=== PATIENT | female | born 1995 | race American Indian/Alaskan Native ===

== ENCOUNTER 2018-06-19 16:28 | Inpatient (IN) | payer MEDICAID ==
[2018-06-19] MEDS ORDERED: BRETHINE SUB-Q PRN (19:16)
[2018-06-19] MEDS ORDERED: CERVIDIL VG ONE (19:16)
[2018-06-19] MEDS ORDERED: SUBLIMAZE IV PRN (19:16)
[2018-06-19] MEDS ORDERED: XYLOCAINE 2% INFILTRATI ONE (19:16)
[2018-06-19] MEDS ORDERED: AMPICILLIN/NS 2 GM/100 ML 2 GM/100 ML BAG IV ONE (19:16)
--- NOTE | 2018-06-19 19:37 | History and Physical Report ---
History of Present Illness Date of examination: 06/19/18 Date of admission: 06/19/2018 Chief complaint: at 40 4/7 weeks gestation; grade 3 placenta; FHR deceleration History of present illness: 22 year old was sent over from office for BPP and NST due to FHR deceleration in office. Patient reports active movement. BPP 10/22. Normal CESAR. Category 1 heart rate tracing. Grade 3 placenta. LMP 09/08/2017. EDC 06/15/2018. EGA 40 weeks, 4 days gestation. Patient received care at [facility]. she transferred to [facility] from [place], [place] at 37 weeks gestation. records are available. significant for the following: GBS positive, severe anemia and pica (treated with iron). labs are as follows: O+, antibody screen negative, pap smear normal, rubella immune, RPR nonreactive, Hepatitis B surface antigen negative, HIV negative, varicella immune, hemoglobin electrophoresis AA, chlamydia negative, gonorrhea negative, GBS positive. Past History Past Medical History: no pertinent history Past Surgical History: no surgical history [facility] History: denies: abnormal PAP smear, chlamydia, gonorrhea, hepatitis B, herp es, HIV, syphilis Family/Genetic History: none Social history: full code. denies: smoking, alcohol abuse, prescription drug abuse, IV drug use - Obstetrical History Expected Date of Delivery: 06/15/18 Actual Gestation: 40 Week(s) 4 Day(s) : 1 Para: 0 Hx # Term Pregnancies: 0 Number of Pregnancies: 0 Spontaneous Abortions: 0 Induced : 0 Number of Living Children: 0 Medications and Allergies Allergies Allergy/AdvReac Type Severity Reaction Status Date / Time No Known Allergies Allergy Unverified 06/19/18 16:34 Active Meds: Active Medications Ephedrine Sulfate (Ephedrine Sulfate) 10 mg IV Q2M PRN PRN Reason: Hypotension Fentanyl (Sublimaze) 100 mcg IV Q2H PRN PRN Reason: Labor Pain Ampicillin Sodium (Polycillin/Ns 2 Gm/100 Ml) 2 gm in 100 mls @ 100 mls/hr IV ONCE ONE; Protocol Stop: 06/19/18 20:15 Lactated Ringer's (Lactated Ringers) 1,000 mls @ 125 mls/hr IV DIRECT SUNIL Oxytocin/Sodium Chloride (Pitocin/Ns 20 Unit/1000ml Drip) 20 units in 1,000 mls @ 125 mls/hr IV DIRECT SUNIL Ampicillin Sodium (Ampicillin/Ns 1 Gm/50 Ml) 1 gm in 50 mls @ 100 mls/hr IV Q4HR SUNIL; Protocol Terbutaline Sulfate (Brethine) 0.25 mg SUB-Q ONCE PRN PRN Reason: Hyperstimulation/Hypertonicity Review of Systems Cardiovascular: no chest pain, no shortness of breath Respiratory: no cough Gastrointestinal: no abdominal pain, no nausea, no vomiting Genitourinary: no vaginal bleeding, no leakage of fluid, no genital sores, no contractions Neurological: no headaches - Vital Signs Vital signs: Vital Signs Temp Pulse Resp BP 98.3 F 84 20 127/83 06/19/18 16:45 06/19/18 16:45 06/19/18 16:45 06/19/18 16:45 Temp Pulse Resp BP Pulse Ox 98.3 F 84 20 127/83 06/19/18 16:45 06/19/18 16:46 06/19/18 16:45 06/19/18 16:46 - Physical Exam Abdomen: Positive: normal appearance, soft. Negative: distention, tenderness, guarding, rigidity Vagina: Positive: normal moisture Uterus: Positive: enlarged. Negative: tender Anus/Rectum: Positive: normal perianal skin Extremities: Positive: normal. Negative: tenderness, edema - Obstetrical FHR: category 1 Uterine Contraction Monitor Mode: External Cervical Dilatation: 1 Cervical Effacement Percentage: 0 station: -1 Uterine Contraction Pattern: Absent Uterine Contraction Intensity: Moderate Results All other labs normal. Assessment and Plan A: at 40 weeks, 4 days gestation. Grade 3 placenta; FHR deceleration at office today. GBS positive. P: Admit. GBS prophylaxis. Cervidil cervical ripening, followed by Pitocin induction of labor. Discussed with pt. risks and benefits of Cervidil cervical ripening and Pitocin induction of labor. Patient consented to Cervidil cerical ripening and Pitocin induction of labor.
[2018-06-19] MEDS ORDERED: PITOCin/NS 20 UNIT/1000ML DRIP 20 UNITS/1,000 ML BAG IV SCH (20:00)
[2018-06-19] MEDS: LACTATED RINGERS 1,000 ML IV SCH (21:00)
--- NOTE | 2018-06-19 21:07 | Ultrasound Report ---
PROCEDURE: US OB BPP WO NON-STRESS TECHNIQUE: Sonographic evaluation for breathing, movement, tone, and amniotic flui d volume was performed. HISTORY: NR NST COMPARISONS: None . FINDINGS: FETUS. heart rate of 161 bpm is detected. Amniotic fluid volume Normal-score 2. At least one vertical pocket >2 cm or more in vertical axis . breathing: Normal-score 2 . movement: Normal-score 2 . tone: Normal-score 2 . Score: 8 of 8 . IMPRESSION: Normal biophysical profile . 10/22. This document is electronically signed by Ever Swann MD., June 19 2018 09:05:16 PM ET
--- NOTE | 2018-06-19 21:21 | Ultrasound Report ---
PROCEDURE: US OB LIMITED TECHNIQUE: Ultrasound obstetrical limited HISTORY: NonReactive NST COMPARISONS: FINDINGS: Single live intrauterine gestation in cephalic presentation. Amniotic fluid index is within normal li mits 0.8 cm cardiac activity present heart rate 1 61 bpm Placenta is fundal IMPRESSION: Single live intrauterine gestation Normal amniotic fluid index. This document is electronically signed by Jose Juan Watters MD., June 19 2018 09:19:40 PM ET
[2018-06-19 22:06] LABS: Hemoglobin 9.9 gm/dl (10.1-14.3); Mean Corpuscular HGB Conc 32 % (30-34); Mean Corpuscular Volume 78 fl (79-97); Platelet Count 244 K/mm3 (140-440); Red Blood Count 3.98 M/mm3 (3.65-5.03)
[2018-06-19 22:24] LABS: Red Cell Distribution Width 26.4 % (13.2-15.2)
[2018-06-19 22:41] LABS: Alanine Aminotransferase 10 units/L (7-56); Albumin 3.6 g/dL (3.9-5); BUN/Creatinine Ratio 10; Blood Urea Nitrogen 6 mg/dL (7-17); Calcium 9.3 mg/dL (8.4-10.2); Hemolysis Index 4; Uric Acid 4.6 mg/dL (3.5-7.6)
[2018-06-19] MEDS: PITOCin/NS 30 UNIT/500ML 30 UNITS/500 ML BAG IV SCH (22:45)
--- NOTE | 2018-06-20 09:45 | Progress Note ---
Assessment and Plan A: at 40 weeks, 5 days gestation. Grade 3 placenta. IOL. P: Continue low dose Pitocin for cervical ripening. Continuous EFM. Subjective - Subjective Date of service: 06/20/18 Principal diagnosis: at 40 weeks, 5 days; grade 3 placenta; IOL Interval history: Patient is having labor induced due to grade 3 placenta and FHR deceleration at 40 5/7 weeks gestation. Patient received low dose Pitocin overnight for cervical ripening. Patient state she feels a few mild contractions. She denies leaking of fluid or vaginal bleeding. Patient reports active movement. Objective - Vital Signs Vital Signs: Vital Signs - 12hr 06/19/18 06/19/18 06/19/18 22:46 23:14 23:19 Temperature 98.6 F Pulse Rate 80 89 Respiratory 20 Rate Blood Pressure 121/68 O2 Sat by Pulse 99 Oximetry 06/19/18 06/19/18 06/19/18 23:24 23:29 23:34 Temperature Pulse Rate 70 71 63 Respiratory Rate Blood Pressure O2 Sat by Pulse 99 99 98 Oximetry 06/19/18 06/19/18 06/19/18 23:39 23:44 23:49 Temperature Pulse Rate 64 68 113 H Respiratory Rate Blood Pressure O2 Sat by Pulse 98 99 99 Oximetry 06/19/18 06/19/18 06/20/18 23:54 23:59 00:04 Temperature Pulse Rate 95 H 73 115 H Respiratory Rate Blood Pressure O2 Sat by Pulse 99 99 99 Oximetry 06/20/18 06/20/18 06/20/18 00:09 00:14 00:19 Temperature Pulse Rate 100 H 111 H 90 Respiratory Rate Blood Pressure O2 Sat by Pulse 99 99 99 Oximetry 06/20/18 06/20/18 06/20/18 00:24 00:29 00:34 Temperature Pulse Rate 104 H 83 101 H Respiratory Rate Blood Pressure O2 Sat by Pulse 99 98 99 Oximetry 06/20/18 06/20/18 06/20/18 00:39 00:44 00:49 Temperature Pulse Rate 108 H 99 H 98 H Respiratory Rate Blood Pressure O2 Sat by Pulse 98 99 99 Oximetry 06/20/18 06/20/18 06/20/18 00:54 00:59 01:04 Temperature Pulse Rate 85 80 65 Respiratory Rate Blood Pressure O2 Sat by Pulse 99 98 98 Oximetry 04/09/0206/20/18 06/20/18 01:09 01:14 01:19 Temperature Pulse Rate 75 96 H 95 H Respiratory Rate Blood Pressure O2 Sat by Pulse 99 99 99 Oximetry 06/20/18 06/20/18 06/20/18 01:24 01:29 01:34 Temperature Pulse Rate 86 88 79 Respiratory Rate Blood Pressure O2 Sat by Pulse 99 98 99 Oximetry 06/20/18 06/20/18 06/20/18 01:39 01:44 01:49 Temperature Pulse Rate 71 78 86 Respiratory Rate Blood Pressure O2 Sat by Pulse 98 98 98 Oximetry 06/20/18 06/20/18 06/20/18 01:54 01:59 02:04 Temperature Pulse Rate 82 78 105 H Respiratory Rate Blood Pressure O2 Sat by Pulse 98 98 98 Oximetry 06/20/18 06/20/18 06/20/18 02:09 02:14 02:19 Temperature Pulse Rate 64 91 H 67 Respiratory Rate Blood Pressure O2 Sat by Pulse 99 99 99 Oximetry 06/20/18 06/20/18 06/20/18 02:24 02:29 02:34 Temperature Pulse Rate 93 H 58 L 79 Respiratory Rate Blood Pressure O2 Sat by Pulse 99 98 99 Oximetry 06/20/18 06/20/18 06/20/18 02:39 02:44 02:49 Temperature Pulse Rate 69 59 L 57 L Respiratory Rate Blood Pressure O2 Sat by Pulse 99 99 99 Oximetry 06/20/18 06/20/18 06/20/18 02:54 02:59 03:04 Temperature Pulse Rate 104 H 100 H 60 Respiratory Rate Blood Pressure O2 Sat by Pulse 99 100 99 Oximetry 06/20/18 06/20/18 06/20/18 03:09 03:14 03:19 Temperature Pulse Rate 113 H 70 76 Respiratory Rate Blood Pressure O2 Sat by Pulse 99 99 99 Oximetry 06/20/18 06/20/18 06/20/18 03:24 03:29 03:34 Temperature Pulse Rate 63 65 59 L Respiratory Rate Blood Pressure O2 Sat by Pulse 99 100 98 Oximetry 06/20/18 06/20/18 06/20/18 03:39 03:44 03:49 Temperature Pulse Rate 87 58 L 61 Respiratory Rate Blood Pressure O2 Sat by Pulse 98 98 98 Oximetry 06/20/18 06/20/18 06/20/18 03:54 03:59 04:04 Temperature Pulse Rate 55 L 64 93 H Respiratory Rate Blood Pressure O2 Sat by Pulse 97 98 98 Oximetry 06/20/18 06/20/18 06/20/18 04:09 04:14 04:19 Temperature Pulse Rate 86 75 60 Respiratory Rate Blood Pressure O2 Sat by Pulse 97 97 98 Oximetry 06/20/18 06/20/18 06/20/18 04:24 04:29 04:34 Temperature Pulse Rate 74 87 77 Respiratory Rate Blood Pressure O2 Sat by Pulse 99 96 98 Oximetry 06/20/18 06/20/18 06/20/18 04:48 04:53 04:58 Temperature Pulse Rate 76 77 89 Respiratory Rate Blood Pressure O2 Sat by Pulse 98 98 98 Oximetry 06/20/18 06/20/18 06/20/18 05:03 05:08 05:13 Temperature Pulse Rate 78 62 78 Respiratory Rate Blood Pressure O2 Sat by Pulse 99 98 98 Oximetry 06/20/18 06/20/18 06/20/18 05:18 05:23 05:28 Temperature Pulse Rate 71 64 59 L Respiratory Rate Blood Pressure O2 Sat by Pulse 98 98 99 Oximetry 06/20/18 06/20/18 06/20/18 05:33 05:38 05:43 Temperature Pulse Rate 65 68 68 Respiratory Rate Blood Pressure O2 Sat by Pulse 99 99 99 Oximetry 06/20/18 06/20/18 06/20/18 05:48 05:53 05:58 Temperature Pulse Rate 61 78 68 Respiratory Rate Blood Pressure O2 Sat by Pulse 98 99 99 Oximetry 06/20/18 06/20/18 06/20/18 06:03 06:08 06:13 Temperature Pulse Rate 70 62 56 L Respiratory Rate Blood Pressure O2 Sat by Pulse 98 99 98 Oximetry 06/20/18 06/20/18 06/20/18 06:18 06:23 06:28 Temperature Pulse Rate 82 90 82 Respiratory Rate Blood Pressure O2 Sat by Pulse 99 99 99 Oximetry 06/20/18 06/20/18 06/20/18 06:31 06:33 06:38 Temperature Pulse Rate 75 67 78 Respiratory Rate Blood Pressure O2 Sat by Pulse 93 98 99 Oximetry 06/20/18 06/20/18 06/20/18 06:43 06:48 06:53 Temperature Pulse Rate 78 71 83 Respiratory Rate Blood Pressure O2 Sat by Pulse 98 98 98 Oximetry 06/20/18 06/20/18 06/20/18 06:58 07:03 07:08 Temperature Pulse Rate 59 L 61 68 Respiratory Rate Blood Pressure O2 Sat by Pulse 98 98 98 Oximetry 06/20/18 06/20/18 06/20/18 07:13 07:18 07:23 Temperature Pulse Rate 55 L 68 52 L Respiratory Rate Blood Pressure O2 Sat by Pulse 98 97 98 Oximetry 06/20/18 06/20/18 06/20/18 07:28 07:33 07:38 Temperature Pulse Rate 67 51 L 62 Respiratory Rate Blood Pressure O2 Sat by Pulse 99 98 97 Oximetry 06/20/18 06/20/18 06/20/18 07:43 07:48 07:53 Temperature Pulse Rate 56 L 71 65 Respiratory Rate Blood Pressure O2 Sat by Pulse 98 98 98 Oximetry 06/20/18 06/20/18 06/20/18 07:58 08:03 08:08 Temperature Pulse Rate 61 85 76 Respiratory Rate Blood Pressure O2 Sat by Pulse 99 99 100 Oximetry 06/20/18 06/20/18 06/20/18 08:18 08:23 08:28 Temperature Pulse Rate 65 69 59 L Respiratory Rate Blood Pressure 134/72 O2 Sat by Pulse 100 99 99 Oximetry 06/20/18 06/20/18 06/20/18 08:33 08:38 08:43 Temperature Pulse Rate 67 60 68 Respiratory Rate Blood Pressure O2 Sat by Pulse 99 100 100 Oximetry 06/20/18 06/20/18 06/20/18 08:48 08:53 08:58 Temperature Pulse Rate 58 L 76 60 Respiratory Rate Blood Pressure O2 Sat by Pulse 98 98 99 Oximetry 06/20/18 06/20/18 06/20/18 09:03 09:08 09:13 Temperature Pulse Rate 74 68 60 Respiratory Rate Blood Pressure O2 Sat by Pulse 98 99 99 Oximetry 06/20/18 06/20/18 06/20/18 09:18 09:23 09:28 Temperature Pulse Rate 59 L 64 71 Respiratory Rate Blood Pressure O2 Sat by Pulse 98 99 100 Oximetry 06/20/18 06/20/18 09:33 09:38 Temperature Pulse Rate 84 76 Respiratory Rate Blood Pressure O2 Sat by Pulse 99 98 Oximetry - Exam Abdomen: Present: normal appearance, soft. Absent: distention, tenderness, guarding, rigidity Uterus: Present: normal, fundal height above umbilicus FHR: category 2 Uterine Contraction Monitor Mode: External Uterine Contraction Pattern: Irregular Uterine Contraction Intensity: Mild Extremities: normal - Labs Labs: Abnormal Labs 06/19/18 06/19/18 21:45 21:45 Hgb 9.9 L MCV 78 L MCH 25 L RDW 26.4 H Sodium 135 L Potassium 3.3 L BUN 6 L Creatinine 0.6 L Glucose 110 H Alkaline Phosphatase 142 H Albumin 3.6 L Laboratory Results - last 24 hr 06/19/18 06/19/18 06/19/18 21:45 21:45 21:45 WBC 4.5 RBC 3.98 Hgb 9.9 L Hct 31.0 MCV 78 L MCH 25 L MCHC 32 RDW 26.4 H Plt Count 244 Sodium 135 L Potassium 3.3 L Chloride 100.5 Carbon Dioxide 22 Anion Gap 16 BUN 6 L Creatinine 0.6 L Estimated GFR > 60 BUN/Creatinine Ratio 10 Glucose 110 H Uric Acid 4.6 Calcium 9.3 Total Bilirubin 0.60 AST 21 ALT 10 Alkaline Phosphatase 142 H Lactate Dehydrogenase 177 Total Protein 6.8 Albumin 3.6 L Albumin/Globulin Ratio 1.1 Blood Type Antibody Screen 06/19/18 21:50 WBC RBC Hgb Hct MCV MCH MCHC RDW Plt Count Sodium Potassium Chloride Carbon Dioxide Anion Gap BUN Creatinine Estimated GFR BUN/Creatinine Ratio Glucose Uric Acid Calcium Total Bilirubin AST ALT Alkaline Phosphatase Lactate Dehydrogenase Total Protein Albumin Albumin/Globulin Ratio Blood Type O POSITIVE Antibody Screen Negative
[2018-06-20] MEDS: AMPICILLIN/NS 1 GM/50 ML 1 GM/50 ML BAG IV SCH ×2 (11:07→15:04)
[2018-06-20] MEDS: PITOCin/NS 30 UNIT/500ML 30 UNITS/500 ML BAG IV SCH (21:38)
[2018-06-20] MEDS: LACTATED RINGERS 1,000 ML IV SCH (21:38)
[2018-06-21] MEDS: LACTATED RINGERS 1,000 ML IV SCH ×2 (03:45→13:10)
--- NOTE | 2018-06-21 08:57 | Progress Note ---
Assessment and Plan A: at 40 weeks, 6 days gestation. Grade 3 placenta. FHR deceleration. P: Continue low dose Pitocin for cervical ripening. Continous EFM. Limit vaginal exams. Subjective - Subjective Date of service: 06/21/18 Principal diagnosis: at 40 weeks, 6 days; grade 3 placenta; IOL Interval history: Patient is having labor induced due to grade 3 placenta and FHR deceleration at 40 6/7 weeks gestation. Patient received low dose Pitocin overnight for cervical ripening. Patient states she now feels contractions. She denies leaking of fluid or vaginal bleeding. Patient reports active movement. Patient reports: movement normal, contractions, no new complaints, no loss of fluid, no vaginal bleeding Objective - Vital Signs Vital Signs: Vital Signs - 12hr 06/21/18 06/21/18 06/21/18 01:00 01:01 03:44 Temperature 96.8 F L Pulse Rate 48 L 48 L 71 Respiratory 18 18 Rate Blood Pressure 141/70 117/56 Blood Pressure 141/70 117/56 [Left] 06/21/18 06/21/18 06/21/18 08:10 08:11 08:19 Temperature 99 F Pulse Rate 75 75 73 Respiratory 16 Rate Blood Pressure 109/55 116/57 Blood Pressure 109/55 [Left] - Exam Abdomen: Present: normal appearance, soft. Absent: distention, tenderness, guarding, rigidity Uterus: Present: normal, fundal height above umbilicus. Absent: bogginess, tenderness FHR: category 1 Uterine Contraction Monitor Mode: External Uterine Contraction Pattern: Irregular Uterine Contraction Intensity: Mild Extremities: normal - Labs Labs: Abnormal Labs 06/19/18 06/19/18 21:45 21:45 Hgb 9.9 L MCV 78 L MCH 25 L RDW 26.4 H Sodium 135 L Potassium 3.3 L BUN 6 L Creatinine 0.6 L Glucose 110 H Alkaline Phosphatase 142 H Albumin 3.6 L
[2018-06-21] MEDS: PITOCin/NS 30 UNIT/500ML 30 UNITS/500 ML BAG IV SCH ×7 (10:03→14:35)
[2018-06-22] MEDS: LACTATED RINGERS 1,000 ML IV SCH (00:23)
--- NOTE | 2018-06-22 09:40 | Progress Note ---
Assessment and Plan - Patient Problems (1) 41 weeks gestation of Current Visit: Yes Status: Acute (2) Encounter for induction of labor Current Visit: Yes Status: Acute Plan to address problem: Continue current management Continue low-dose pitocin for cervical ripening; Edwards balloon inserted Anticipate vaginal delivery (3) Group B Streptococcus carrier, +RV culture, currently Current Visit: Yes Status: Acute Plan to address problem: Continue ampicillin for GBS prophylaxis Subjective - Subjective Date of service: 06/22/18 Principal diagnosis: IUP @ 41 weeks, 0 day; Grade 3 placenta; IOL Interval history: see H&P and OB Progress Notes Patient reports: movement normal, contractions, no new complaints, no loss of fluid, no vaginal bleeding Objective - Vital Signs Vital Signs: Vital Signs - 12hr 06/21/18 06/21/18 06/21/18 21:40 21:45 21:50 Pulse Rate 72 100 H 73 Blood Pressure O2 Sat by Pulse 98 98 99 Oximetry 06/21/18 06/21/18 06/21/18 21:55 22:00 22:05 Pulse Rate 73 97 H 93 H Blood Pressure O2 Sat by Pulse 99 99 98 Oximetry 06/21/18 06/21/18 06/21/18 22:10 22:15 22:20 Pulse Rate 93 H 75 88 Blood Pressure O2 Sat by Pulse 99 98 99 Oximetry 06/21/18 06/21/18 06/21/18 22:25 22:30 22:35 Pulse Rate 100 H 87 91 H Blood Pressure O2 Sat by Pulse 98 98 98 Oximetry 06/21/18 06/21/18 06/21/18 22:40 22:45 22:50 Pulse Rate 80 94 H 98 H Blood Pressure O2 Sat by Pulse 98 99 98 Oximetry 06/21/18 06/21/18 06/21/18 22:55 23:00 23:05 Pulse Rate 88 86 87 Blood Pressure O2 Sat by Pulse 97 96 97 Oximetry 06/21/18 06/21/18 06/21/18 23:10 23:15 23:20 Pulse Rate 77 90 82 Blood Pressure O2 Sat by Pulse 97 97 97 Oximetry 06/21/18 06/21/18 06/21/18 23:25 23:30 23:35 Pulse Rate 88 68 73 Blood Pressure O2 Sat by Pulse 97 99 98 Oximetry 06/21/18 06/21/18 06/21/18 23:40 23:45 23:50 Pulse Rate 75 73 87 Blood Pressure O2 Sat by Pulse 98 98 99 Oximetry 06/21/18 06/22/18 06/22/18 23:55 00:00 00:05 Pulse Rate 94 H 89 70 Blood Pressure O2 Sat by Pulse 98 98 99 Oximetry 06/22/18 06/22/18 06/22/18 00:10 00:15 00:20 Pulse Rate 77 90 80 Blood Pressure O2 Sat by Pulse 99 99 100 Oximetry 06/22/18 06/22/18 06/22/18 00:25 00:55 01:12 Pulse Rate 84 65 74 Blood Pressure 105/53 O2 Sat by Pulse 100 98 Oximetry 06/22/18 06/22/18 06/22/18 01:17 01:22 01:25 Pulse Rate 81 80 82 Blood Pressure 99/50 O2 Sat by Pulse 98 98 Oximetry 06/22/18 06/22/18 06/22/18 01:27 01:32 01:37 Pulse Rate 71 88 74 Blood Pressure O2 Sat by Pulse 97 98 99 Oximetry 06/22/18 06/22/18 06/22/18 01:42 01:47 01:52 Pulse Rate 67 67 63 Blood Pressure O2 Sat by Pulse 98 98 98 Oximetry 06/22/18 06/22/18 06/22/18 01:55 01:57 02:02 Pulse Rate 93 H 60 60 Blood Pressure 104/54 O2 Sat by Pulse 98 98 Oximetry 06/22/18 06/22/18 06/22/18 02:07 02:12 02:17 Pulse Rate 76 60 62 Blood Pressure O2 Sat by Pulse 98 98 98 Oximetry 06/22/18 06/22/18 06/22/18 02:22 02:25 02:27 Pulse Rate 70 56 L 80 Blood Pressure 131/65 O2 Sat by Pulse 99 98 Oximetry 06/22/18 06/22/18 06/22/18 02:32 02:37 02:42 Pulse Rate 70 68 64 Blood Pressure O2 Sat by Pulse 98 98 98 Oximetry 06/22/18 06/22/18 06/22/18 02:47 02:52 02:55 Pulse Rate 82 73 65 Blood Pressure 112/65 O2 Sat by Pulse 98 98 Oximetry 06/22/18 06/22/18 06/22/18 02:57 03:02 03:07 Pulse Rate 62 63 74 Blood Pressure O2 Sat by Pulse 98 98 98 Oximetry 06/22/18 06/22/18 06/22/18 03:12 03:17 03:22 Pulse Rate 55 L 89 58 L Blood Pressure O2 Sat by Pulse 98 98 98 Oximetry 06/22/18 06/22/18 06/22/18 03:25 03:27 03:32 Pulse Rate 58 L 61 67 Blood Pressure 106/54 O2 Sat by Pulse 99 98 Oximetry 06/22/18 06/22/18 06/22/18 03:37 03:42 03:47 Pulse Rate 60 54 L 58 L Blood Pressure O2 Sat by Pulse 98 99 98 Oximetry 06/22/18 06/22/18 06/22/18 03:52 03:55 03:57 Pulse Rate 62 60 63 Blood Pressure 118/56 O2 Sat by Pulse 99 98 Oximetry 06/22/18 06/22/18 06/22/18 04:02 04:07 04:12 Pulse Rate 63 74 68 Blood Pressure O2 Sat by Pulse 97 98 96 Oximetry 06/22/18 06/22/18 06/22/18 04:17 04:22 04:25 Pulse Rate 62 57 L 58 L Blood Pressure 108/57 O2 Sat by Pulse 96 99 Oximetry 06/22/18 06/22/18 06/22/18 04:27 04:32 04:37 Pulse Rate 58 L 54 L 54 L Blood Pressure O2 Sat by Pulse 98 97 97 Oximetry 06/22/18 06/22/18 06/22/18 04:42 04:47 04:52 Pulse Rate 54 L 58 L 66 Blood Pressure O2 Sat by Pulse 97 97 96 Oximetry 06/22/18 06/22/18 06/22/18 04:57 05:02 05:07 Pulse Rate 59 L 54 L 53 L Blood Pressure O2 Sat by Pulse 98 96 98 Oximetry 06/22/18 06/22/18 06/22/18 05:12 05:17 05:22 Pulse Rate 64 56 L 53 L Blood Pressure O2 Sat by Pulse 98 98 98 Oximetry 06/22/18 06/22/18 06/22/18 05:27 05:32 05:35 Pulse Rate 55 L 56 L 56 L Blood Pressure 121/59 O2 Sat by Pulse 98 98 Oximetry 06/22/18 06/22/18 06/22/18 05:37 05:42 05:47 Pulse Rate 57 L 54 L 56 L Blood Pressure O2 Sat by Pulse 98 98 98 Oximetry 06/22/18 06/22/18 06/22/18 05:52 05:57 06:02 Pulse Rate 57 L 53 L 56 L Blood Pressure O2 Sat by Pulse 99 97 96 Oximetry 06/22/18 06/22/18 06/22/18 06:07 06:12 06:30 Pulse Rate 57 L 62 82 Blood Pressure O2 Sat by Pulse 98 99 99 Oximetry 06/22/18 06/22/18 06/22/18 06:33 06:35 06:40 Pulse Rate 55 L 79 73 Blood Pressure 126/71 O2 Sat by Pulse 98 98 Oximetry 06/22/18 06/22/18 06/22/18 06:45 06:50 06:55 Pulse Rate 55 L 78 63 Blood Pressure O2 Sat by Pulse 99 98 99 Oximetry 06/22/18 06/22/18 06/22/18 07:00 07:05 07:10 Pulse Rate 61 57 L 63 Blood Pressure O2 Sat by Pulse 100 99 99 Oximetry 06/22/18 06/22/18 06/22/18 07:15 07:20 07:25 Pulse Rate 60 62 59 L Blood Pressure O2 Sat by Pulse 99 99 100 Oximetry 06/22/18 06/22/18 06/22/18 07:30 07:33 07:35 Pulse Rate 82 59 L 59 L Blood Pressure 132/75 O2 Sat by Pulse 99 99 Oximetry 06/22/18 06/22/18 06/22/18 07:40 07:45 07:50 Pulse Rate 59 L 64 67 Blood Pressure O2 Sat by Pulse 98 99 98 Oximetry 06/22/18 06/22/18 06/22/18 07:55 08:00 08:05 Pulse Rate 59 L 60 71 Blood Pressure O2 Sat by Pulse 97 98 98 Oximetry 06/22/18 06/22/18 06/22/18 08:10 08:15 08:20 Pulse Rate 57 L 53 L 56 L Blood Pressure O2 Sat by Pulse 96 97 97 Oximetry 06/22/18 06/22/18 06/22/18 08:25 08:30 08:33 Pulse Rate 56 L 64 52 L Blood Pressure 108/55 O2 Sat by Pulse 96 96 Oximetry 06/22/18 06/22/18 06/22/18 08:35 08:40 08:58 Pulse Rate 63 89 99 H Blood Pressure O2 Sat by Pulse 96 98 98 Oximetry 06/22/18 06/22/18 06/22/18 09:03 09:08 09:13 Pulse Rate 61 58 L 72 Blood Pressure O2 Sat by Pulse 97 98 98 Oximetry 06/22/18 06/22/18 06/22/18 09:18 09:23 09:28 Pulse Rate 63 66 62 Blood Pressure O2 Sat by Pulse 98 98 99 Oximetry 06/22/18 06/22/18 09:33 09:34 Pulse Rate 109 H 133 H Blood Pressure 129/85 O2 Sat by Pulse 99 Oximetry - Exam Vulva: both: normal FHR: auscultation normal, category 1 FHR comments: baseline 130, moderate variability, 15x15 accels, no decels Uterine Contraction Monitor Mode: External Cervical Dilatation: 1 Cervical Effacement Percentage: 70 station: -2 Uterine Contraction Pattern: Regular - Labs Labs: Abnormal Labs 06/19/18 06/19/18 21:45 21:45 Hgb 9.9 L MCV 78 L MCH 25 L RDW 26.4 H Sodium 135 L Potassium 3.3 L BUN 6 L Creatinine 0.6 L Glucose 110 H Alkaline Phosphatase 142 H Albumin 3.6 L Laboratory Results - last 24 hr 06/19/18 21:45 RPR Nonreactive
[2018-06-22] MEDS: STADOL IV PRN ×3 (10:11→22:01)
--- NOTE | 2018-06-23 04:45 | Event Note ---
Date: 06/23/18 S: Pt in semi-kent's position. Significant other at bedside. Reports leaking clear fluid x3 hrs. O: FHR: baseline 140, moderate variability, 15x15 accels, no decels CTxs: q4-5mins Pitocin @ 10 mU/min SVE 4/80/-3/Vtx A: IUP @ 41w1d IOL for postdates, Grade 3 placenta Category I FHR SROM P: Continue current management Anticipate vaginal delivery
[2018-06-23] MEDS: STADOL IV PRN (06:41)
[2018-06-23] MEDS: AMPICILLIN/NS 1 GM/50 ML 1 GM/50 ML BAG IV SCH (08:44)
--- NOTE | 2018-06-23 11:05 | Progress Note ---
Assessment and Plan (1) 40w5d weeks gestation of Current Visit: Yes Status: Acute (2) Induction of Labor at term Current Visit: Yes Status: Acute Plan to address problem: Routine labor orders Pitocin 16 mu Category 1 tracing GBS Positive; Ampicillin prophylaxis Anticipate vaginal delivery Subjective - Subjective Date of service: 06/23/18 (10:34) Principal diagnosis: IUP @ 41 weeks, 0 day; Grade 3 placenta; IOL Interval history: See H&P Patient reports: movement normal, contractions (increasing intensity), no new complaints, no loss of fluid, no vaginal bleeding Objective - Vital Signs Vital Signs: Vital Signs - 12hr 06/22/18 06/23/18 06/23/18 23:21 02:26 02:50 Temperature Pulse Rate 71 79 72 Respiratory Rate Blood Pressure 108/56 77/46 111/57 Blood Pressure [Left] O2 Sat by Pulse Oximetry 06/23/18 06/23/18 06/23/18 02:55 03:26 03:31 Temperature 97.6 F Pulse Rate 71 74 Respiratory 18 Rate Blood Pressure 107/56 102/51 Blood Pressure [Left] O2 Sat by Pulse Oximetry 06/23/18 06/23/18 06/23/18 03:56 04:26 04:56 Temperature Pulse Rate 80 75 67 Respiratory Rate Blood Pressure 110/57 130/82 110/57 Blood Pressure [Left] O2 Sat by Pulse Oximetry 06/23/18 06/23/18 06/23/18 06:37 07:07 07:53 Temperature 98.1 F Pulse Rate 68 52 L Respiratory 20 Rate Blood Pressure 122/62 106/56 Blood Pressure 106/56 [Left] O2 Sat by Pulse Oximetry 06/23/18 06/23/18 06/23/18 07:58 08:02 08:03 Temperature Pulse Rate 83 83 65 Respiratory Rate Blood Pressure Blood Pressure [Left] O2 Sat by Pulse 100 94 100 Oximetry 06/23/18 06/23/18 06/23/18 08:04 08:35 08:53 Temperature Pulse Rate 61 99 H 82 Respiratory Rate Blood Pressure 137/73 128/67 Blood Pressure [Left] O2 Sat by Pulse 96 Oximetry 06/23/18 06/23/18 06/23/18 08:57 08:58 09:03 Temperature Pulse Rate 94 H 88 85 Respiratory Rate Blood Pressure Blood Pressure [Left] O2 Sat by Pulse 93 98 99 Oximetry 04/09/19 04/09/19 04/09/19 09:04 09:35 09:38 Temperature Pulse Rate 80 96 H 104 H Respiratory Rate Blood Pressure 118/78 130/70 Blood Pressure [Left] O2 Sat by Pulse 97 Oximetry 06/23/18 06/23/18 06/23/18 09:48 10:06 10:32 Temperature Pulse Rate 110 H 105 H 100 H Respiratory Rate Blood Pressure 120/76 Blood Pressure [Left] O2 Sat by Pulse 98 99 Oximetry 06/23/18 06/23/18 06/23/18 10:37 10:42 10:43 Temperature Pulse Rate 80 90 72 Respiratory Rate Blood Pressure 120/81 Blood Pressure [Left] O2 Sat by Pulse 100 98 Oximetry - Exam Breasts: normal Cardiovascular: Regular rate, Normal S1, Normal S2, No murmurs Lungs: Clear to auscultation, Normal air movement Abdomen: Present: normal appearance, soft, normal bowel sounds. Absent: distention Vulva: both: normal Uterus: Present: other (Gravid) FHR: category 1 Uterine Contraction Monitor Mode: External Cervical Dilatation: 6 (AROM 4/9@10:34, lg amt clear fluid) Cervical Effacement Percentage: 90 station: -1 Uterine Contraction Frequency (min): 3-4 Uterine Contraction Duration: 60-90 Uterine Contraction Pattern: Regular Uterine Tone Measurement Phase: Resting Uterine Contraction Intensity: Moderate Extremities: normal Deep Tendon Reflex Grade: Normal +2 - Labs Labs: Abnormal Labs 06/19/18 06/19/18 21:45 21:45 Hgb 9.9 L MCV 78 L MCH 25 L RDW 26.4 H Sodium 135 L Potassium 3.3 L BUN 6 L Creatinine 0.6 L Glucose 110 H Alkaline Phosphatase 142 H Albumin 3.6 L
[2018-06-23] MEDS ORDERED: NARCAN 2 MG/2 ML IV PRN (11:43)
--- NOTE | 2018-06-23 11:43 | Anesthesia Consultation ---
Anesthesia Consult and Med Hx - Airway Anesthetic Teeth Evaluation: Good ROM Head & Neck: Adequate Mental/Hyoid Distance: Adequate Mallampati Class: Class III Intubation Access Assessment: Probably Good - Pulmonary Exam CTA: Yes - Cardiac Exam Cardiac Exam: RRR - Pre-Operative Health Status ASA Pre-Surgery Classification: ASA2 Proposed Anesthetic Plan: Epidural - Pulmonary Hx Smoking: No Hx Asthma: No Hx Respiratory Symptoms: No SOB: No COPD: No Home Oxygen Therapy: No Hx Pneumonia: No Hx Sleep Apnea: No - Cardiovascular System Hx Hypertension: No Hx Coronary Artery Disease: No Hx Heart Attack/AMI: No Hx Angina: No Hx Percutaneous Transluminal Coronary Angioplasty (PTCA): No Hx Cardia Arrhythmia: No Hx Pacemaker: No Hx Internal Defibrillator: No Hx Valvular Heart Disease: No Hx Heart Murmur: No Hx Peripheral Vascular Disease: No - Central Nervous System Hx Neuromuscular Disorder: No Hx Seizures: No CVA: No Hx Back Pain: No Hx Psychiatric Problems: No - Gastrointestinal Hx Ulcer: No Hx Gastroesophageal Reflux Disease: No - Endocrine Hx Renal Disease: No Hx End Stage Renal Disease: No Hx Cirrhosis: No Hx Liver Disease: No Hx Insulin Dependent Diabetes: No Hx Non-Insulin Dependent Diabetes: No Hx Thyroid Disease: No Hx Hypothyroidism: No Hx Hyperthyroidism: No - Hematic Hx Anemia: No Hx Sickle Cell Disease: No - Other Systems Hx Alcohol Use: No Hx Substance Use: No Hx Cancer: No Hx Obesity: No
[2018-06-23] MEDS ORDERED: MARCAINE 0.25% INFILTRATI ONE (11:47)
[2018-06-23] MEDS ORDERED: fentaNYL-BUPIV 2 MCG/ML-0.125% 200 MCG/100 ML BAG EPIDURAL ONE (11:51)
[2018-06-23] MEDS ORDERED: fentaNYL-BUPIV 2 MCG/ML-0.125% 200 MCG/100 ML BAG EPIDURAL SCH (12:00)
[2018-06-23] MEDS ORDERED: XYLOCAINE 2% INFILTRATI ONE (16:38)
[2018-06-23] MEDS ORDERED: TYLENOL PO PRN (17:30)
[2018-06-23] MEDS ORDERED: TUCKS PAD TP PRN (17:30)
[2018-06-23] MEDS ORDERED: DULCOLAX PR PRN (17:30)
[2018-06-23] MEDS ORDERED: PHENERGAN PO PRN (17:30)
[2018-06-23] MEDS ORDERED: LANSINOH TP PRN (17:30)
[2018-06-23] MEDS ORDERED: ZOFRAN IV PRN (17:30)
[2018-06-23] MEDS ORDERED: NORCO 5/325 PO PRN (17:30)
[2018-06-23] MEDS ORDERED: DERMOPLAST TP PRN (17:30)
[2018-06-23] MEDS ORDERED: MILK OF MAGNESIA PO PRN (17:30)
[2018-06-23] MEDS ORDERED: BENADRYL PO PRN (17:30)
--- NOTE | 2018-06-23 17:33 | Post Anesthesia Evaluation ---
- Post Anesthesia Evaluation Patient Participated: Yes Airway Patent: Yes Stable Respiratory Function: Yes Nausea/Vomiting: No Temp > 96.8F: Yes Pain Manageable: Yes Adequeate Hydration: Yes Anesthesia Complications: No Block Receding Appropriately: Yes Patient on Ventilator: No
--- NOTE | 2018-06-23 17:43 | Procedure Note ---
OB Delivery Note - Delivery Date of Delivery: 06/23/18 (16:31) Surgeon: ROSI LUNDY (BERT) Estimated blood loss: 300cc - Vaginal Delivery presentation: vertex Delivery position: OP (Straight) Intrapartum events: mult.variable deceleratio Delivery augmentation: rupture of membranes, pitocin Delivery monitor: external FHT, external uterine Route of delivery: (16:31) Delivery placenta: spontaneous (16:46) Delivery cord: nuchal cord (x1 loose; delivered intact via somersault maneuver) Delivery laceration: 2nd degree, other (Sulcus tear) Delivery repair: vicryl (2-0 CT) Anesthesia: local, epidural Delivery comments: viable female , Straight OP presentation, loose nuchal x1, delivered intact via somersault maneuver at 16:31. Vigorous placed [id number] on mothers abdomen. Delayed cord clamping; then cut by FOB with my guidance. Cord blood collected per protocol. Spontaneous sheikh delivery of intact placenta at 16:46. 2nd degree perineal laceration & right sulcus tear repaired using 2-[address] under local/epidural anesthesia. Several clots expressed with fundal massage. Approximately 400cc clear light yellow urine emptied from bladder using red jennifer catheter. FF@U-2. bleeding small. Infant and mother left in stable condition in L&D. EBL 300cc. - A at 1 minute: 8 at 5 minutes: 9 Gender: Female (6lbs 15oz, 3134 grams, 19")
[2018-06-23] MEDS ORDERED: SODIUM CHLORIDE FLUSH SYRINGE 10 ML IV NR (18:00)
[2018-06-23] MEDS: IBUPROFEN PO SCH (20:12)
[2018-06-23] MEDS: COLACE PO SCH (22:12)
[2018-06-24] MEDS: IBUPROFEN PO SCH ×3 (00:04→23:39)
[2018-06-24 08:43] LABS: Hematocrit 22.2 % (30.3-42.9); Hemoglobin 7.2 gm/dl (10.1-14.3)
--- NOTE | 2018-06-24 10:03 | Progress Note ---
Assessment and Plan A: PP Day#1 Asymptomatic Anemia P: Follow Routine Orders Infed 100mg IM X 1 Dose Ferrous Sulfate 325mg PO TID D/C Home in AM RTO in 6 Weeks Subjective - Subjective Date of service: 06/24/18 Principal diagnosis: IUP @ 41 weeks, 0 day; Grade 3 placenta; IOL Patient reports: appetite normal, voiding normally, pain well controlled, flatus, ambulating normally, other (Denies faigue and dizziness) : doing well, bottle feeding (and bottlefeeding) Objective - Vital Signs Latest vital signs: Vital Signs Temp Pulse Resp BP BP Pulse Ox 06/24/18 07:54 97.5 F L 85 18 119/68 06/24/18 00:46 98.0 F 90 16 109/56 95 06/23/18 20:13 98.7 F 99 H 18 130/73 98 06/23/18 19:32 82 99 06/23/18 19:31 149/84 06/23/18 19:30 66 149/84 06/23/18 19:27 71 156/82 100 06/23/18 19:26 98.7 F 70 16 156/82 100 06/23/18 19:00 78 133/75 06/23/18 18:45 80 126/60 06/23/18 18:29 98 H 157/69 06/23/18 18:14 69 165/73 06/23/18 18:00 71 152/72 06/23/18 17:45 94 H 139/80 06/23/18 17:15 77 140/73 06/23/18 16:59 70 152/69 06/23/18 16:45 72 147/67 06/23/18 16:16 150 H 131/85 06/23/18 16:01 90 127/59 06/23/18 15:45 91 H 134/68 06/23/18 15:16 78 141/66 06/23/18 15:03 104 H 154/104 06/23/18 14:46 71 161/92 06/23/18 14:32 65 181/79 98 06/23/18 14:27 64 100 06/23/18 14:22 56 L 100 06/23/18 14:17 62 100 06/23/18 14:15 57 L 169/93 06/23/18 14:12 57 L 99 06/23/18 14:07 60 100 06/23/18 14:02 59 L 100 06/23/18 14:00 58 L 157/81 06/23/18 13:57 64 99 06/23/18 13:52 56 L 100 06/23/18 13:29 85 116/57 06/23/18 13:27 98 H 121/61 06/23/18 13:26 68 117/74 06/23/18 13:23 88 113/59 06/23/18 13:21 100 H 113/59 06/23/18 13:19 74 117/67 06/23/18 13:17 80 115/62 06/23/18 13:15 118 H 114/55 06/23/18 13:14 96 H 126/60 06/23/18 13:11 102 H 110/53 06/23/18 13:09 98 H 113/56 06/23/18 13:08 85 123/73 06/23/18 13:02 73 130/73 06/23/18 12:58 85 122/59 06/23/18 12:56 67 135/73 06/23/18 12:53 75 123/62 06/23/18 12:51 82 119/60 06/23/18 12:50 67 126/62 06/23/18 12:48 71 115/57 06/23/18 12:45 65 130/63 06/23/18 12:43 64 126/88 06/23/18 12:42 72 129/68 06/23/18 12:39 58 L 147/72 06/23/18 12:37 54 L 144/67 06/23/18 12:36 55 L 99 06/23/18 12:35 55 L 148/71 06/23/18 12:33 54 L 145/71 06/23/18 12:31 55 L 149/71 100 06/23/18 12:29 51 L 149/71 06/23/18 12:28 56 L 153/73 06/23/18 12:26 58 L 100 06/23/18 12:25 59 L 158/81 06/23/18 12:24 54 L 151/70 06/23/18 12:21 56 L 100 06/23/18 12:16 57 L 146/70 100 06/23/18 12:13 95 H 120/70 06/23/18 12:11 82 119/71 99 06/23/18 12:09 67 143/73 06/23/18 12:07 70 134/73 06/23/18 12:06 78 142/89 100 06/23/18 12:03 77 133/63 06/23/18 12:01 77 141/83 06/23/18 12:00 75 100 06/23/18 11:59 84 135/94 06/23/18 11:58 58 L 52 L 06/23/18 11:55 81 100 06/23/18 11:43 98.3 F 75 20 100 06/23/18 11:36 81 157/86 06/23/18 11:05 71 160/92 06/23/18 10:43 72 120/81 06/23/18 10:42 90 98 06/23/18 10:40 98.7 F 06/23/18 10:37 80 100 06/23/18 10:32 100 H 99 06/23/18 10:06 105 H 120/76 Intake and Output 06/23/18 06/24/18 06/24/18 22:59 06:59 14:59 Intake Total 300 360 Output Total 600 Balance -300 360 Intake: Oral 360 Intake, Free Water 300 Output: Urine 600 Void 600 Other: Total, Intake Amount 360 Total, Output Amount 600 360 # Voids Void 2 Estimated Blood Loss 300 - Exam Breasts: Present: normal Cardiovascular: Present: Regular rate Lungs: Present: Clear to auscultation, Normal air movement Abdomen: Present: normal appearance, soft, normal bowel sounds Uterus: Present: normal, firm, fundal height below umbilicus Extremities: Present: normal - Labs Labs: Abnormal lab results 06/24/18 Range/Units 08:26 Hgb 7.2 L (10.1-14.3) gm/dl Hct 22.2 L (30.3-42.9) %
--- NOTE | 2018-06-24 10:05 | Discharge Summary ---
Providers - Providers Date of Admission: 06/19/18 19:38 Date of discharge: 06/25/18 Attending physician: SENAIT DAO MD Primary care physician: SENAIT DAO MD Hospitalization Reason for admission: induction of labor Delivery: Episiotomy: none Laceration: 2nd degree Other procedures: none complications: none Discharge diagnosis: IUP at term delivered [place] baby: female Condition at discharge: Good Disposition: DC-01 TO HOME OR SELFCARE Plan - Provider Discharge Summary Activity: routine, no sex for 6 weeks, no heavy lifting 4 weeks, no strenuous exercise Diet: routine Instructions: routine Additional instructions: [] Smoking cessation referral if applicable(refer to patient education folder for contact #) [] Refer to [facility] Booklet Call your doctor immediately for: * Fever > 100.5 * Heavy vaginal bleeding ( >1 pad per hour) * Severe persistent headache * Shortness of breath * Reddened, hot, painful area to leg or breast * Drainage or odor from incision. * Keep incision clean and dry at all times and follow doctor's instructions regarding bathing/showering - Follow up plan Follow up: SENAIT DAO MD [Primary Care Provider] - 6 Weeks Forms: [facility] Discharge Summary
[2018-06-24] MEDS: COLACE PO SCH ×2 (11:36→21:51)
[2018-06-24] MEDS ORDERED: INFED IM ONE (12:00)
[2018-06-24] MEDS: FEOSOL PO SCH ×2 (14:17→21:50)
[2018-06-25] MEDS: IBUPROFEN PO SCH ×2 (06:10→10:59)
[2018-06-25 09:04] VITALS: BP 120/82
[2018-06-25] MEDS: COLACE PO SCH (10:59)
== END 2018-06-25 15:40 | disposition home or self-care (01) | DRG 775 ==
LOC: TRG 16:28 → LD 19:38 → OB 06-23 20:18
PROVIDERS: ADMIT Obstetrics & Gynecology; ATTEND Obstetrics & Gynecology
PROC: 10E0XZZ Delivery of Products of Conception, External Approach (ICD-10-PCS; principal; 2018-06-23)
PROC: 0KQM0ZZ Repair Perineum Muscle, Open Approach (ICD-10-PCS; 2018-06-23)
PROC: 3E0P7VZ Introduction of Hormone into Female Reproductive, Via Natural or Artificial Opening (ICD-10-PCS; 2018-06-23)
PROC: 3E0R3BZ Introduction of Anesthetic Agent into Spinal Canal, Percutaneous Approach (ICD-10-PCS; 2018-06-23)
PROC: 00HU33Z Insertion of Infusion Device into Spinal Canal, Percutaneous Approach (ICD-10-PCS; 2018-06-23)
DX: O76 Abnormality in fetal heart rate and rhythm complicating labor and delivery (principal); O99.824 Streptococcus B carrier state complicating childbirth; O99.02 Anemia complicating childbirth; O48.0 Post-term pregnancy; O64.0XX0 Obstructed labor due to incomplete rotation of fetal head, not applicable or unspecified; O69.1XX0 Labor and delivery complicated by cord around neck, with compression, not applicable or unspecified; O70.1 Second degree perineal laceration during delivery; Z37.0 Single live birth; D64.9 Anemia, unspecified; Z3A.40 40 weeks gestation of pregnancy
CPT/HCPCS: 36415; 59025; 76815; 76819; 80053; 83615; 84550; 85014; 85018; 85027; 86592; 86850; 86900; 86901; G0378; A6250; J0290; J0595; J1750; J2590; J7120

== ENCOUNTER 2019-02-23 20:24 | Emergency (ER) | payer SELFPAY ==
[2019-02-23 20:50] VITALS: BP 142/89
[2019-02-23 21:51] LABS: Bacteria,Urine 1+ /HPF (Negative); Bilirubin,Urine NEG (Negative); Blood,Urine MOD (Negative); Color,Urine Amber (Yellow); Mucus,Urine FEW /HPF
[2019-02-23 21:54] LABS: HCG Qualitative,Urine Negative (Negative)
[2019-02-23 21:55] LABS: WBC,Urine > 182.0 /HPF (0.0-6.0)
--- NOTE | 2019-02-24 00:51 | Emergency Department Report ---
ED General Adult HPI - General Chief complaint: Urogenital-Female Stated complaint: PELVIC PAIN Time Seen by Provider: 02/23/19 23:59 Source: patient Mode of arrival: Ambulatory Limitations: No Limitations - History of Present Illness Initial comments: 23-year-old -Armenian female patient complains of urinary frequency and lower abdominal pain 3 days. She states the pain is more of a discomfort that occurs at the end of urination. She denies any dysuria, hematuria, vaginal discharge, dyspareunia, or vaginal odor. She rates her pain as a 3/10 in severity. She states the pain improves with [id number] Azo. She denies history of recurrent urinary tract infections or fevers/chills/sweats. -: Sudden Severity scale (0 -10): 3 Quality: aching Consistency: intermittent Improves with: medication Associated Symptoms: denies other symptoms - Related Data Previous Rx's Medication Instructions Recorded Last Taken Type Sulfamethoxazole/Trimethoprim 1 each PO BID 5 Days #10 tablet 02/24/19 Unknown Rx [Bactrim DS TAB] Allergies Allergy/AdvReac Type Severity Reaction Status Date / Time No Known Allergies Allergy Unverified 06/19/18 16:34 ED Review of Systems ROS: Stated complaint: PELVIC PAIN Other details as noted in HPI Comment: All other systems reviewed and negative Gastrointestinal: as per HPI Genitourinary: urgency, frequency. denies: dysuria, hematuria, discharge, dyspareunia ED Past Medical Hx - Past Medical History Hx Hypertension: No Hx Heart Attack/AMI: No Hx Diabetes: No Hx Deep Vein Thrombosis: No Hx Liver Disease: No Hx Renal Disease: No Hx Sickle Cell Disease: No Hx Seizures: No Hx Asthma: No Hx COPD: No Hx HIV: No - Surgical History Hx Pacemaker: No Hx Internal Defibrillator: No - Social History Smoking Status: Never Smoker Substance Use Type: None - Medications Home Medications: Home Medications Medication Instructions Recorded Confirmed Last Taken Type Sulfamethoxazole/Trimethoprim 1 each PO BID 5 Days #10 tablet 02/24/19 Unknown Rx [Bactrim DS TAB] ED Physical Exam - General Limitations: No Limitations General appearance: alert, in no apparent distress - Head Head exam: Present: atraumatic, normocephalic - Eye Eye exam: Present: normal appearance - Respiratory Respiratory exam: Absent: respiratory distress - Cardiovascular Cardiovascular Exam: Present: regular rate, normal rhythm. Absent: systolic murmur, diastolic murmur, rubs, gallop - GI/Abdominal GI/Abdominal exam: Present: soft, normal bowel sounds. Absent: distended, tenderness, guarding, rebound, rigid - Extremities Exam Extremities exam: Present: normal inspection - Back Exam Back exam: Present: normal inspection - Neurological Exam Neurological exam: Present: alert, oriented X3 - Psychiatric Psychiatric exam: Present: normal affect, normal mood - Skin Skin exam: Present: warm, dry, intact, normal color. Absent: rash ED Course Vital Signs 02/23/19 20:47 Temperature 98.9 F Pulse Rate 92 H Respiratory 18 Rate Blood Pressure 142/89 O2 Sat by Pulse 100 Oximetry ED Medical Decision Making - Lab Data Lab Results 02/23/19 Range/Units 21:13 Urine Color Polina (Yellow) Urine Turbidity Slightly-cloudy (Clear) Urine pH 8.0 H (5.0-7.0) Ur Specific [place] 1.016 (1.003-1.030) Urine Protein 100 mg/dl (Negative) mg/dL Urine Glucose (UA) Neg (Negative) mg/dL Urine Ketones Neg (Negative) mg/dL Urine Blood Mod (Negative) Urine Nitrite Pos (Negative) Urine Bilirubin Neg (Negative) Urine Urobilinogen 4.0 (<2.0) mg/dL Ur Leukocyte Esterase Mod (Negative) Urine WBC (Auto) > 182.0 H (0.0-6.0) /HPF Urine RBC (Auto) 182.0 (0.0-6.0) /HPF U Epithel Cells (Auto) < 1.0 (0-13.0) /HPF Urine Bacteria (Auto) 1+ (Negative) /HPF Urine WBC Clumps 2+ /HPF Urine Mucus Few /HPF Urine HCG, Qual Negative (Negative) - Medical Decision Making 23-year-old female patient here with urinary frequency/urgency and post for a lower abdominal discomfort for the past 3 days. She denied any vaginal discharg e/bleeding. UA shows WBCs >182 and + nitrites. Patient is stable for discharge home with Bactrim. Recommend follow-up with PCP in 3-5 days. Discussed strict return precautions in detail with patient who states understanding. Critical care attestation.: If time is entered above; I have spent that time in minutes in the direct care of this critically ill patient, excluding procedure time. ED Disposition Clinical Impression: Acute cystitis Qualifiers: Hematuria presence: without hematuria Qualified Code(s): N30.00 - Acute cystitis without hematuria Disposition: TO HOME OR SELFCARE Is pt being admited?: No Condition: Stable Instructions: Urinary Tract Infection in Women (ED) Prescriptions: Sulfamethoxazole/Trimethoprim [Bactrim DS TAB] 1 each PO BID 5 Days #10 tablet Referrals: PRIMARY CARE, [Primary Care Provider] - 3-5 Days
== END 2019-02-24 00:55 | disposition home or self-care (01) ==
LOC: ED 20:24
DX: N30.00 Acute cystitis without hematuria (principal)
CPT/HCPCS: 81001; 81025; 87076; 87086; 87186

== ENCOUNTER 2020-10-26 08:55 | Outpatient (CLI) | payer SELFPAY ==
[2020-10-26] MEDS ORDERED: FLUCONAZOLE 100 MG TAB PO ONE (10:30)
[2020-10-26 10:54] LABS: Hematocrit 22.3 % (30.3-42.9); Hemoglobin 6.5 gm/dl (10.1-14.3); Mean Corpuscular HGB Conc 29 % (30-34); Platelet Count 302 K/mm3 (140-440); Red Blood Count 3.61 M/mm3 (3.65-5.03); Red Cell Distribution Width 19.8 % (13.2-15.2)
[2020-10-26 10:58] LABS: Mean Corpuscular Volume 62 fl (79-97)
[2020-10-26 11:30] LABS: Bilirubin,Urine NEG (Negative); Blood,Urine NEG (Negative); Color,Urine Yellow (Yellow); Protein,Urine <15 mg/dL mg/dL (Negative); Urobilinogen,Urine < 2.0 mg/dL (<2.0)
[2020-10-26 11:34] LABS: Alanine Aminotransferase 6 units/L (7-56); Uric Acid 3.1 mg/dL (3.5-7.6)
--- NOTE | 2020-10-26 11:34 | Ultrasound Report ---
ULTRASOUND BIOPHYSICAL PROFILE INDICATION: Lower abdominal pain. COMPARISON: None available. FINDINGS: heart rate is 141 beats per minute. breathing movement = 2 Gross body movement = 2 tone = 2 Qualitative amniotic fluid volume = 2 IMPRESSION: biophysical profile = 10/22 Signer Name: Ken Anna Jr, MD Signed: 10/26/2020 11:30 AM Workstation Name: [id number]
[2020-10-26] MEDS ORDERED: SODIUM CHLORIDE 0.9% 500 ML 500 ML IV NR (12:03)
--- NOTE | 2020-10-26 12:13 | Progress Note ---
Subjective - Subjective Date of service: 10/26/20 Interval history: 30+ weeks scant PNC presents with cramping and [facility] PIH w/up negative Hb 6/5-plan for transfusion 2 units prbc UA +ve for UTI- will given ancef [id number] dose fluids Maternal/ status reassuring d/c to home after transfusion Puja Bear MD Objective - Vital Signs Vital Signs: Vital Signs - 12hr 10/26/20 10/26/20 10/26/20 09:23 09:28 09:31 Temperature 99.1 F Pulse Rate 107 H 77 81 Blood Pressure 134/73 Blood Pressure 134/73 [Right] O2 Sat by Pulse 99 100 99 Oximetry 10/26/20 10/26/20 10/26/20 09:33 09:38 09:43 Temperature Pulse Rate 86 94 H 76 Blood Pressure Blood Pressure [Right] O2 Sat by Pulse 100 100 100 Oximetry 10/26/20 10/26/20 10/26/20 09:44 09:48 09:53 Temperature Pulse Rate 75 87 72 Blood Pressure 113/65 Blood Pressure [Right] O2 Sat by Pulse 100 100 Oximetry 10/26/20 10/26/20 10/26/20 09:55 09:58 10:03 Temperature Pulse Rate 78 87 89 Blood Pressure 103/59 Blood Pressure [Right] O2 Sat by Pulse 100 100 Oximetry 10/26/20 10/26/20 10/26/20 10:08 10:09 10:13 Temperature Pulse Rate 80 91 H 90 Blood Pressure 103/64 Blood Pressure [Right] O2 Sat by Pulse 100 100 Oximetry 10/26/20 10/26/20 10/26/20 10:18 10:23 10:24 Temperature Pulse Rate 79 91 H 79 Blood Pressure 106/64 Blood Pressure [Right] O2 Sat by Pulse 100 100 Oximetry 10/26/20 10/26/20 10/26/20 10:28 10:33 10:38 Temperature Pulse Rate 93 H 98 H 77 Blood Pressure Blood Pressure [Right] O2 Sat by Pulse 100 100 100 Oximetry 10/26/20 10/26/20 10/26/20 10:41 10:43 10:48 Temperature Pulse Rate 77 70 79 Blood Pressure 111/63 Blood Pressure [Right] O2 Sat by Pulse 100 100 Oximetry 10/26/20 10/26/20 10/26/20 10:53 10:54 10:58 Temperature Pulse Rate 81 80 88 Blood Pressure 108/61 Blood Pressure [Right] O2 Sat by Pulse 100 100 Oximetry 10/26/20 10/26/20 10/26/20 11:03 11:08 11:09 Temperature Pulse Rate 83 79 81 Blood Pressure 102/59 Blood Pressure [Right] O2 Sat by Pulse 100 100 Oximetry 10/26/20 10/26/20 10/26/20 11:13 11:18 11:23 Temperature Pulse Rate 80 80 94 H Blood Pressure Blood Pressure [Right] O2 Sat by Pulse 100 100 100 Oximetry 10/26/20 10/26/20 10/26/20 11:24 11:28 11:33 Temperature Pulse Rate 76 90 80 Blood Pressure 102/56 Blood Pressure [Right] O2 Sat by Pulse 100 100 Oximetry 10/26/20 10/26/20 10/26/20 11:38 11:39 11:43 Temperature Pulse Rate 77 80 76 Blood Pressure 102/62 Blood Pressure [Right] O2 Sat by Pulse 100 100 Oximetry 10/26/20 10/26/20 10/26/20 11:48 11:53 11:54 Temperature Pulse Rate 72 75 74 Blood Pressure 104/64 Blood Pressure [Right] O2 Sat by Pulse 100 100 Oximetry 10/26/20 10/26/20 10/26/20 11:58 12:03 12:08 Temperature Pulse Rate 97 H 82 94 H Blood Pressure Blood Pressure [Right] O2 Sat by Pulse 100 100 100 Oximetry 10/26/20 12:09 Temperature Pulse Rate 86 Blood Pressure 106/64 Blood Pressure [Right] O2 Sat by Pulse Oximetry - Labs Labs: Abnormal Labs 10/26/20 10/26/20 10/26/20 10:37 10:37 11:09 RBC 3.61 L Hgb 6.5 L Hct 22.3 L MCV 62 L MCH 18 L MCHC 29 L RDW 19.8 H Creatinine 0.4 L Uric Acid 3.1 L AST < 5 L ALT 6 L Urine WBC (Auto) 15.0 H Laboratory Results - last 24 hr 10/26/20 10/26/20 10/26/20 10:37 10:37 11:09 WBC 6.9 RBC 3.61 L Hgb 6.5 L Hct 22.3 L MCV 62 L MCH 18 L MCHC 29 L RDW 19.8 H Plt Count 302 Creatinine 0.4 L Estimated GFR > 60 Uric Acid 3.1 L AST < 5 L ALT 6 L Lactate Dehydrogenase 164 Urine Color Yellow Urine Turbidity Slightly-cloudy Urine pH 7.0 Ur Specific [place] 1.006 Urine Protein <15 mg/dl Urine Glucose (UA) Neg Urine Ketones Neg Urine Blood Neg Urine Nitrite Neg Urine Bilirubin Neg Urine Urobilinogen < 2.0 Ur Leukocyte Esterase Lg Urine WBC (Auto) 15.0 H Urine RBC (Auto) 9.0 U Epithel Cells (Auto) 5.0
[2020-10-26] MEDS ORDERED: LACTATED RINGERS 1,000 ML ONE (13:44)
[2020-10-26] MEDS ORDERED: LACTATED RINGERS 1,000 ML IV ONE (13:48)
[2020-10-26] MEDS ORDERED: ALUM-MAG HYDROXIDE-SIMETHICONE 200-200-20MG/5ML ORAL LIQD 30 ML PO STA (19:59)
[2020-10-26 23:34] VITALS: BP 106/65
== END 2020-10-26 22:22 | disposition home or self-care (01) ==
LOC: TRG 08:55 → APU 08:56 → TRG 22:22
PROVIDERS: ATTEND Obstetrics & Gynecology
DX: O99.013 Anemia complicating pregnancy, third trimester (principal); D64.9 Anemia, unspecified; O26.893 Other specified pregnancy related conditions, third trimester; R10.30 Lower abdominal pain, unspecified; M54.9 Dorsalgia, unspecified; R51.9 Headache, unspecified; Z3A.30 30 weeks gestation of pregnancy
CPT/HCPCS: 36415; 36430; 59025; 76819; 81001; 82565; 83615; 84450; 84460; 84550; 85027; 86850; 86900; 86901; 86920; 87086; 96365; J0690; J7120; P9016; 96360

== ENCOUNTER 2020-12-31 22:14 | Inpatient (IN) | payer MEDICAID ==
[2020-12-31] MEDS ORDERED: TERBUTALINE 1 MG/1 ML INJ SUB-Q PRN (22:47)
[2020-12-31] MEDS ORDERED: OXYTOCIN 10 UNIT/1 ML INJ IM PRN (22:47)
[2020-12-31] MEDS ORDERED: AMPICILLIN/NS 2 GM/100 ML 2 GM/100 ML BAG IV ONE (22:47)
[2020-12-31] MEDS ORDERED: ACETAMINOPHEN 325 MG TAB PO PRN (22:47)
[2020-12-31] MEDS ORDERED: miSOPROStol 200 MCG TAB PR PRN (22:47)
[2020-12-31] MEDS ORDERED: ONDANSETRON 4 MG/2 ML INJ IV PRN (22:47)
[2020-12-31] MEDS ORDERED: BUTORPHANOL 2 MG/1 ML INJ IV PRN (22:47)
[2020-12-31] MEDS ORDERED: ePHEDrine SULFATE 50 MG/1 ML INJ IV PRN (22:47)
[2020-12-31] MEDS ORDERED: LOPERAMIDE 2 MG CAP PO PRN (22:47)
[2020-12-31] MEDS ORDERED: CARBOPROST TROMETHAMINE 250 MCG/1 ML INJ IM PRN (22:47)
[2020-12-31] MEDS ORDERED: LIDOCAINE (2%) 20 MG/1 ML VIAL 20 ML MDV INFILTRATI ONE (22:47)
[2020-12-31] MEDS ORDERED: MINERAL OIL 30 ML ORAL LIQD PO PRN (22:47)
[2020-12-31] MEDS ORDERED: METHYLERGONOVINE MALEATE 0.2 MG/ML VIAL IM PRN (22:47)
[2020-12-31] MEDS ORDERED: fentaNYL 100 MCG/2 ML INJ IV PRN (22:47)
--- NOTE | 2020-12-31 22:53 | History and Physical Report ---
History of Present Illness Date of examination: 12/31/20 Date of admission: 12/31/2020 Chief complaint: Contractions History of present illness: 25 year old presents to L&D in active labor with leaking of meconium stained amniotic fluid. Patient states her labor began at 7:00 PM tonight. Patient received care at [facility] but no records are available. Patient states her EDC is 12/31/20. Patient reports an uneventful . Has had a previous . Denies any health problems. Past History Past Medical History: other (obesity) Past Surgical History: other (EAB x1) [facility] History: denies: chlamydia, gonorrhea, hepatitis B, hepatitis C, herpes, HIV, syphilis, trichomonas Family/Genetic History: none Social history: no significant social history, lives with family, full code. denies: smoking, alcohol abuse, prescription drug abuse, IV drug use - Obstetrical History Expected Date of Delivery: 12/31/20 Actual Gestation: 40 Week(s) 1 Day(s) : 3 Para: 1 Hx # Term Pregnancies: 1 Number of Pregnancies: 0 Spontaneous Abortions: 0 Induced : 1 Number of Living Children: 1 Medications and Allergies Allergies Allergy/AdvReac Type Severity Reaction Status Date / Time No Known Allergies Allergy Verified 10/26/20 09:28 Home Medications Medication Instructions Recorded Confirmed Last Taken Type One Daily Tablet 1 tab PO DAILY 10/26/20 10/26/20 1 Day Ago History ~10/25/20 1 TABLET Active Meds: Active Medications Acetaminophen (Acetaminophen 325 Mg Tab) 650 mg PO Q4H PRN PRN Reason: Pain, Mild (1-3) Butorphanol Tartrate (Butorphanol 2 Mg/1 Ml Inj) 1 mg IV Q2H PRN PRN Reason: Pain, Moderate(4-6) LABOR PAIN Carboprost Tromethamine (Carboprost Tromethamine 250 Mcg/1 Ml Inj) 250 mcg IM ONCE PRN PRN Reason: Uterine Bleeding Ephedrine Sulfate (Ephedrine Sulfate 50 Mg/1 Ml Inj) 10 mg IV Q2M PRN PRN Reason: Hypotension Fentanyl (Fentanyl 100 Mcg/2 Ml Inj) 100 mcg IV Q2H PRN PRN Reason: Pain,Severe (7-10) LABOR PAIN Lactated Ringer's (Lactated Ringers) 1,000 mls @ 125 mls/hr IV DIRECT SUNIL Oxytocin/Sodium Chloride (Pitocin/Ns 30 Unit/500ml) 30 units in 500 mls @ 40 m ls/hr IV TITR SUNIL; Protocol Ampicillin Sodium (Ampicillin/Ns 2 Gm/100 Ml) 2 gm in 100 mls @ 100 mls/hr IV ONCE ONE; Protocol Stop: 12/31/20 23:46 Ampicillin Sodium (Ampicillin/Ns 1 Gm/50 Ml) 1 gm in 50 mls @ 100 mls/hr IV Q4H SUNIL; Protocol Lidocaine (Lidocaine (2%) 20 Mg/1 Ml Vial 20 Ml Mdv) 20 ml INFILTRATI ONCE ONE Stop: 12/31/20 22:48 Loperamide HCl (Loperamide 2 Mg Cap) 2 mg PO ONCE PRN PRN Reason: give with Hemabate Methylergonovine Maleate (Methylergonovine Maleate 0.2 Mg/Ml Vial) 0.2 mg IM ONCE PRN PRN Reason: Uterine Bleeding Mineral Oil (Mineral Oil 30 Ml Oral Liqd) 30 ml PO QHS PRN PRN Reason: Constipation Misoprostol (Misoprostol 200 Mcg Tab) 800 mcg OR ONCE PRN PRN Reason: Uterine Bleeding Ondansetron HCl (Ondansetron 4 Mg/2 Ml Inj) 4 mg IV Q8H PRN PRN Reason: Nausea And Vomiting Oxytocin (Oxytocin 10 Unit/1 Ml Inj) 10 unit IM ONCE PRN PRN Reason: Uterine Bleeding Terbutaline Sulfate (Terbutaline 1 Mg/1 Ml Inj) 0.25 mg SUB-Q ONCE PRN PRN Reason: Hyperstimulation/Hypertonicity Review of Systems All systems: negative (contractions) - Physical Exam Abdomen: Positive: normal appearance, soft. Negative: distention, tenderness, guarding, rigidity Genitourinary (Female): Positive: normal external genitalia, normal perenium. Negative: perineal/vulvar lesions Uterus: Positive: enlarged. Negative: tender Anus/Rectum: Positive: normal perianal skin Extremities: Positive: normal. Negative: tenderness, edema - Obstetrical FHR: category 1 Cervical Dilatation: 8 Cervical Effacement Percentage: 90 station: 0 Uterine Contraction Pattern: Regular Uterine Contraction Intensity: Strong/Firm Results Result Diagrams: 12/31/20 23:00 All other labs normal. Assessment and Plan A: at 40 weeks gestation. Active labor. GBS unknown. No records available. P: Admit. EFM. GBS prophylaxis. Expect .
[2020-12-31] MEDS ORDERED: OXYTOCIN DRIP 30 UNITS/500 ML BAG IV SCH (23:00)
[2020-12-31] MEDS ORDERED: LACTATED RINGERS 1,000 ML IV SCH (23:00)
[2020-12-31 23:13] LABS: Hematocrit 26.9 % (30.3-42.9); Hemoglobin 8.8 gm/dl (10.1-14.3); Mean Corpuscular HGB Conc 33 % (30-34); Platelet Count 268 K/mm3 (140-440); Red Blood Count 4.01 M/mm3 (3.65-5.03)
[2020-12-31 23:27] LABS: Mean Corpuscular Volume 67 fl (79-97); Red Cell Distribution Width 22.7 % (13.2-15.2)
[2020-12-31] MEDS ORDERED: IBUPROFEN 600 MG TAB PO SCH (23:45)
[2020-12-31 23:46] LABS: Hepatitis C Virus Antibody Non-Reactive (NonReactive)
[2020-12-31] MEDS ORDERED: MAGNESIUM HYDROXIDE (MOM) ORAL LIQD UDC PO PRN (23:47)
[2020-12-31] MEDS ORDERED: HYDROcodone/ACETAMINOPHEN 5-325 MG TAB PO PRN (23:47)
[2020-12-31] MEDS ORDERED: LANOLIN/ZINC/DIMETHICONE (LANSINOH) 7 GM TP PRN (23:47)
[2020-12-31] MEDS ORDERED: WITCH HAZEL/ GLYCERIN PAD TP PRN ×2 (23:47→23:49)
[2020-12-31] MEDS ORDERED: BENZOCAINE/MENTHOL 20/0.5% TOP SPRAY 56 GM TP PRN (23:49)
--- NOTE | 2020-12-31 23:52 | Procedure Note ---
OB Delivery Note - Delivery Date of Delivery: 12/31/20 Surgeon: PATRICIA OBRIEN Estimated blood loss: 300cc - Vaginal Delivery presentation: vertex Delivery position: OA Intrapartum events: meconium, precipitous labor- <3hr Delivery induction: none Delivery monitor: external FHT, external uterine Route of delivery: Delivery placenta: spontaneous Delivery cord: other (short cord) Delivery laceration: 2nd degree Anesthesia: none Delivery comments: Spontaneous vaginal delivery at 23:27 of liveborn female infant weighing 5 lb. 14 oz. over 2nd degree perineal laceration with apgars of 8/9. was atraumatic; no nuchal cord. Baby placed skin to skin with mom immediately after delivery; spontaneous cry and respirations. Baby dried with warm towels and suctioned with bulb syringe. 3 vessel cord double clamped and cut. Cord blood obtained. Spontaneous delivery of intact placenta and membranes at 23:31. EBL 300 cc. Pitocin to IV fluids after delivery of placenta. Cytotec 800 micrograms given rectally for uterine atony. Uterus firmed with massaage. 2nd degree perineal laceration noted; patient refused repair of 2nd degree perineal laceration. Vaginal sweep negative. Sponge count correct. Mother and baby stable in birthing room.
[2021-01-01] MEDS ORDERED: AMPICILLIN/NS 1 GM/50 ML 1 GM/50 ML BAG IV SCH (03:00)
[2021-01-01] MEDS: FERROUS SULFATE 325 MG TAB PO SCH ×2 (10:12→22:19)
[2021-01-01] MEDS: DOCUSATE SODIUM 100 MG CAP PO SCH ×2 (10:12→22:19)
--- NOTE | 2021-01-01 10:12 | Progress Note ---
Assessment and Plan A: S/P Awaiting H&H P: Continue routine pp orders D/C home tomm if stable Subjective - Subjective Date of service: 01/01/21 Principal diagnosis: S/P Patient reports: appetite normal, voiding normally, pain well controlled, ambulating normally Lowry: doing well, bottle feeding Objective - Vital Signs Latest vital signs: Vital Signs Temp Pulse Resp BP Pulse Ox Pulse Ox 01/01/21 08:11 98.1 F 90 18 115/69 97 01/01/21 06:40 18 01/01/21 06:03 99.4 F 70 16 132/80 100 01/01/21 05:40 20 01/01/21 01:53 99.0 F 86 18 122/65 98 100 01/01/21 01:34 186 H 90 01/01/21 01:32 64 100 01/01/21 01:27 75 100 01/01/21 01:22 61 97 01/01/21 01:17 66 99 01/01/21 01:12 74 99 01/01/21 01:07 64 99 01/01/21 01:02 75 100 01/01/21 00:57 68 100 01/01/21 00:52 71 100 01/01/21 00:47 75 99 01/01/21 00:42 67 100 01/01/21 00:37 69 100 01/01/21 00:32 81 100 01/01/21 00:27 79 100 01/01/21 00:22 80 100 01/01/21 00:17 75 100 01/01/21 00:12 67 100 01/01/21 00:07 67 99 01/01/21 00:02 76 100 12/31/20 23:57 74 100 12/31/20 23:52 71 100 12/31/20 23:47 69 100 12/31/20 23:46 68 115/68 12/31/20 23:42 86 100 12/31/20 23:37 83 100 12/31/20 23:32 76 100 12/31/20 23:27 104 H 99 12/31/20 23:26 76 88 12/31/20 23:22 94 H 100 12/31/20 23:17 109 H 99 12/31/20 23:16 69 88 12/31/20 23:12 106 H 100 12/31/20 23:11 98.2 F 12 100 12/31/20 23:10 92 H 133/87 Intake and Output 12/31/20 01/01/21 01/01/21 22:59 06:59 14:59 Intake Total 240 Output Total 500 Balance -260 Intake: Intake, Free Water 240 Output: Urine 500 Void 500 Other: Total, Output Amount 500 # Voids Void 1 Weight 150 lb Estimated Blood Loss 200 - Exam Breasts: Present: normal Abdomen: Present: normal appearance, soft, normal bowel sounds Vulva: both: normal Uterus: Present: normal, firm, fundal height below umbilicus Extremities: Present: normal Incision: Present: normal, intact - Labs Labs: Abnormal lab results 12/31/20 Range/Units 23:00 Hgb 8.8 L (10.1-14.3) gm/dl Hct 26.9 L (30.3-42.9) % MCV 67 L (79-97) fl MCH 22 L (28-32) pg RDW 22.7 H (13.2-15.2) %
[2021-01-01] MEDS: IBUPROFEN ORAL LIQD 100 MG/5 ML ORAL.LIQD PO SCH ×3 (11:43→22:19)
[2021-01-01 14:12] LABS: Hemoglobin 7.3 gm/dl (10.1-14.3)
[2021-01-01] MEDS ORDERED: IRON DEXTRAN COMPLEX 100 MG/2 ML INJ IM ONE (17:00)
[2021-01-02] MEDS: IBUPROFEN ORAL LIQD 100 MG/5 ML ORAL.LIQD PO SCH ×3 (07:27→18:30)
--- NOTE | 2021-01-02 08:42 | Discharge Summary ---
Providers - Providers Date of Admission: 12/31/20 22:48 Date of discharge: 01/02/21 Attending physician: LINO FARIAS JR, MD Primary care physician: LINO FARIAS JR, MD Hospitalization Reason for admission: active labor, IUP at term Delivery: Episiotomy: none Laceration: 2nd degree Incision: normal, intact Other procedures: none complications: other (anemia requiring INfED and po Fe) Discharge diagnosis: IUP at term delivered baby: female Pertinent studies: Pt was admitted in active labor and had a . She was treated with INfed and po Fe for asymptomatic anemia. Pt was d/c'd home in stable condition. See H&P, delivery note and pp notes. Condition at discharge: Stable Disposition: 01 HOME / SELF CARE / HOMELESS Plan - Discharge Medications Prescriptions: Ibuprofen Oral Liqd [Motrin Oral Liq 100 mg/5 ml] 600 mg PO Q6HR PRN #300 oral.liqd PRN Reason: Menstrual Cramps - Provider Discharge Summary Activity: routine, no sex for 6 weeks, no heavy lifting 4 weeks, no strenuous exercise Diet: other (High Fe) Instructions: routine Additional instructions: [] Smoking cessation referral if applicable(refer to patient education folder for contact #) [] Refer to [facility] Booklet Call your doctor immediately for: * Fever > 100.5 * Heavy vaginal bleeding ( >1 pad per hour) * Severe persistent headache * Shortness of breath * Reddened, hot, painful area to leg or breast * Drainage or odor from incision. * Keep incision clean and dry at all times and follow doctor's instructions regarding bathing/showering - Follow up plan Follow up: LINO FARIAS JR, MD [Primary Care Provider] - 6 Weeks
[2021-01-02] MEDS: FERROUS SULFATE 325 MG TAB PO SCH (09:57)
[2021-01-02] MEDS: DOCUSATE SODIUM 100 MG CAP PO SCH (09:57)
[2021-01-02 16:14] VITALS: BP 123/79
== END 2021-01-02 20:15 | disposition home or self-care (01) | DRG 775 ==
LOC: TRG 22:14 → APU 22:22 → LD 22:40 → TRG 22:47 → LD 22:48 → OB 01-01 02:13
PROVIDERS: ADMIT Obstetrics & Gynecology; ATTEND Obstetrics & Gynecology
PROC: 0KQM0ZZ Repair Perineum Muscle, Open Approach (ICD-10-PCS; principal; 2020-12-31)
PROC: 10E0XZZ Delivery of Products of Conception, External Approach (ICD-10-PCS; 2020-12-31)
PROC: 3E0R3BZ Introduction of Anesthetic Agent into Spinal Canal, Percutaneous Approach (ICD-10-PCS; 2020-12-31)
PROC: 00HU33Z Insertion of Infusion Device into Spinal Canal, Percutaneous Approach (ICD-10-PCS; 2020-12-31)
DX: O77.0 Labor and delivery complicated by meconium in amniotic fluid (principal); O70.1 Second degree perineal laceration during delivery; Z3A.40 40 weeks gestation of pregnancy; Z37.0 Single live birth; Z20.822 Contact with and (suspected) exposure to COVID-19
CPT/HCPCS: 36415; 85014; 85018; 85027; 86592; 86706; 86762; 86803; 86850; 86900; 86901; 87591; 87806; G0378; J1750; J3010; J7120; U0003